=== PATIENT | male | born 1965 | race Caucasian/White ===

== ENCOUNTER 2018-04-13 03:34 | Emergency (ER) | payer SELFPAY ==
[2018-04-13 03:39] VITALS: RESP 20; TEMP 96.6
[2018-04-13 04:09] LABS: BASOPHILS % (AUTO) 1 % (0-3); EOSINOPHILS % (AUTO) 2 % (0-9); HEMATOCRIT 47 % (39-53); HEMOGLOBIN 15.7 gm/dl (13.5-17.7); LYMPHOCYTES % (AUTO) 20.6 % (10-50); MEAN CORPUSCULAR HEMOGLOBIN 30.2 pg (27.0-32.0); MEAN CORPUSCULAR HGB CONC 33.7 gm/dl (32.0-36.0); MEAN CORPUSCULAR VOLUME 90 fL (80-100); MONOCYTES % (AUTO) 7.5 % (0-12); NEUTROPHILS % (AUTO) 68.7 % (37-80)
[2018-04-13 04:11] VITALS: O2SAT 96
[2018-04-13] MEDS ORDERED: LIDOCAINE HCL 2% MPF 10 ML SOL SC ONE (04:16)
[2018-04-13] MEDS ORDERED: LIDOCAINE HCL 2% MPF 10 ML SOL ONE (04:17)
[2018-04-13 04:31] LABS: ALBUMIN 3.6 gm/dl (3.4-5.0); ALKALINE PHOSPHATASE 62 IU/L (46-116); ALT 41 IU/L (14-63); AST 23 IU/L (15-37); BILIRUBIN,TOTAL 0.5 mg/dl (0.2-1.0); BLOOD UREA NITROGEN 25 mg/dl (7-18); CALCIUM 8.4 mg/dl (8.5-10.1); CARBON DIOXIDE 25.4 mEq/L (21-32); CHLORIDE 103 mMol/L (98-107); CREATINE KINASE 157 U/L (39-308); CREATININE 1.07 mg/dl (0.80-1.30); GLUCOSE 103 mg/dl (74-106); POTASSIUM 3.7 mMol/L (3.5-5.1); SODIUM 138 mMol/L (136-145); TOTAL PROTEIN 6.7 gm/dl (6.4-8.2); TROP I < 0.017 ng/ml (0.000-0.056)
[2018-04-13 04:42] VITALS: BP 129/72; PULSE 56
[2018-04-13] MEDS ORDERED: BACITRACIN 500 U/GM OIN TOP ONE ×2 (04:44→04:50)
== END 2018-04-13 05:17 | disposition home or self-care (01) | DRG 312 ==
LOC: ED 03:34
DX: R55 Syncope and collapse (principal); S01.21XA Laceration without foreign body of nose, initial encounter; W18.39XA Other fall on same level, initial encounter; S00.81XA Abrasion of other part of head, initial encounter
CPT/HCPCS: 12011; 36415; 70450; 80053; 82550; 84443; 84484; 85025; 93005; 99283; 99285; A9270-GY